=== PATIENT | male | born 1950 | race Caucasian/White ===

== ENCOUNTER → 2020-12-02 | Outpatient (CLI) | payer MEDICARE | END | disposition home or self-care (01) | LOC: CFH 12:03 | PROVIDERS: ATTEND Family Medicine | DX: C79.51 Secondary malignant neoplasm of bone (principal); Z12.2 Encounter for screening for malignant neoplasm of respiratory organs; C61 Malignant neoplasm of prostate; R59.0 Localized enlarged lymph nodes; R91.8 Other nonspecific abnormal finding of lung field; M89.9 Disorder of bone, unspecified; N32.89 Other specified disorders of bladder; N13.30 Unspecified hydronephrosis; F17.200 Nicotine dependence, unspecified, uncomplicated | CPT/HCPCS: 71271; 74176; 82565 ==